=== PATIENT | female | born 1975 | race Caucasian/White ===

== ENCOUNTER 2017-07-09 15:00 | Emergency (ER) | payer MEDICARE ==
[2017-07-09] MEDS ORDERED: IV NORMAL SALINE 1000ML BAG 1,000 ML IV ×2 (15:30)
[2017-07-09] MEDS ORDERED: HYDROmorphone 2 MG/ML VIAL IV ×2 (15:30)
[2017-07-09] MEDS ORDERED: ONDANSETRON PF 4 MG/2 ML VIAL. IV ×4 (15:30)
[2017-07-09] MEDS ORDERED: KETOROLAC 15 MG/ML VIAL. IV ×2 (15:30)
[2017-07-09 15:46] LABS: BILIRUBIN,URINE NEGATIVE (NEG); CLARITY,URINE CLEAR; COLOR,URINE YELLOW; GLUCOSE,URINE NEGATIVE (NEG); NITRITE,URINE NEGATIVE (NEG); PH,URINE 6.5; PROTEIN,URINE NEGATIVE (NEG-TRACE); UROBILINOGEN,URINE 0.2 mg/dL (0.2 mg/dL)
[2017-07-09 16:03] LABS: RBC,URINE 0 /HPF (0-2)
[2017-07-09 16:04] LABS: BACTERIA,URINE FEW /HPF (0-FEW); SQUAMOUS EPITHELIAL CELL,UR MOD /LPF; WBC,URINE 0 /HPF (0-4)
[2017-07-09] MEDS: HYDROmorphone 2 MG/ML VIAL IM ×2 (16:53)
[2017-07-09] MEDS: KETOROLAC 60 MG/2 ML INJ. IM ×2 (16:53)
[2017-07-09] MEDS: ONDANSETRON ODT 4 MG TAB.RAPDIS. PO ×2 (16:53)
[2017-07-09 17:57] LABS: ADD MAN DIFF? NO
[2017-07-09 18:00] LABS: BASO # 0.1 x10^3/uL (0.0-0.2); BASO % 1 % (0-3); EOS # 0.1 x10^3/uL (0.0-0.7); EOS % 2 % (0-3); HEMATOCRIT 36.7 % (36.0-47.0); HEMOGLOBIN 12.5 g/dL (12.0-15.5); LYMPH # 1.6 x10^3/uL (1.0-4.8); LYMPH % 27 % (24-48); MEAN CORPUSCULAR HEMOGLOBIN 33 pg (25-35); MEAN CORPUSCULAR HGB CONC 34 g/dL (31-37); MEAN CORPUSCULAR VOLUME 96 fL (79-100); MONO # 0.4 x10^3/uL (0.0-1.1); MONO % 7 % (0-9); NEUT # 3.7 x10^3uL (1.8-7.7); NEUT % 64 % (31-73); PLATELET COUNT 251 x10^3/uL (140-400); RED BLOOD COUNT 3.84 x10^6/uL (3.50-5.40); RED CELL DISTRIBUTION WIDTH 12.4 % (11.5-14.5); WHITE BLOOD COUNT 5.8 x10^3/uL (4.0-11.0)
[2017-07-09] MEDS: HYDROmorphone 2 MG/ML VIAL IV ×2 (18:00)
[2017-07-09 18:21] LABS: ANION GAP 10 (6-14); BLOOD UREA NITROGEN 20 mg/dL (7-20); BUN/CREATININE RATIO 25 (6-20); CALCIUM 8.9 mg/dL (8.5-10.1); CARBON DIOXIDE 26 mmol/L (21-32); CHLORIDE 107 mmol/L (98-107); CREATININE 0.8 mg/dL (0.6-1.0); GFR 78.3; GLUCOSE 91 mg/dL (70-99); POTASSIUM 3.7 mmol/L (3.5-5.1); SODIUM 143 mmol/L (136-145)
[2017-07-09 18:33] LABS: ALBUMIN 3.6 g/dL (3.4-5.0); ALK PHOS 50 U/L (46-116); ALT (SGPT) 14 U/L (14-59); AST (SGOT) 13 U/L (15-37); TOTAL BILIRUBIN 0.3 mg/dL (0.2-1.0); TOTAL PROTEIN 7.2 g/dL (6.4-8.2)
[2017-07-09] MEDS: traMADol 50 MG TABLET PO ×2 (19:00)
[2017-07-09] MEDS: KETOROLAC 15 MG/ML VIAL. IV ×2 (19:01)
[2017-07-10 13:21] LABS: FSH 9.3 mIU/mL (.)
[2017-07-10 13:21] LABS: ESTRADIOL LEVEL 81.5 pg/mL (.)
== END 2017-07-09 19:20 | disposition home or self-care (01) ==
LOC: ER 15:00
DX: N83.201 Unspecified ovarian cyst, right side (principal); K21.9 Gastro-esophageal reflux disease without esophagitis; G40.909 Epilepsy, unspecified, not intractable, without status epilepticus; Z90.49 Acquired absence of other specified parts of digestive tract; Z90.710 Acquired absence of both cervix and uterus; Z90.721 Acquired absence of ovaries, unilateral; Z88.5 Allergy status to narcotic agent; Z88.8 Allergy status to other drugs, medicaments and biological substances; Z86.73 Personal history of transient ischemic attack (TIA), and cerebral infarction without residual deficits
CPT/HCPCS: 36415; 76830; 76856; 80053; 81001; 82670; 83001; 85025; 96372; 96374; 96375; 99285-25; J1170; J1885; Q0162

== ENCOUNTER → 2018-09-20 | Outpatient (CLI) | payer MEDICARE ==
[2017-07-09 19:20] VITALS: BP 103/68
[~2018-09-20] MED LIST: BUPR150T15 PO; DOCU-150 PO; HYDR200T71 PO; LAMO200T3 PO; MORP30TA83 PO; MYCO250C PO; NITR0.4T22 SL; PANT40GR PO; PARO20TA99 PO; PARO30TA45 PO; POTA99TA10 PO; TEMA15CA6 PO; TOPI50TA38 PO; TRAM-48 PO
--- NOTE | 2018-09-20 17:09 | KCIC ---
MRI Lumbar Spine without contrast History: Left sciatic nerve pain, chronic low back pain, bilateral lower extremity numbness Technique: Multiplanar, multi sequential noncontrast MR imaging was performed of the lumbar spine. Comparison: July 05, 2013 Findings: There is now grade 1 anterior spondylolisthesis L3-4. There has been progression of mild degenerative disc disease at L3-4 and L5-S1, again mild L4-5 degenerative disc disease. There is now posterior annular tear L5-S1. There is no significant marrow edema, trace edema of the superior left L5 endplate likely reactive/degenerative in etiology. Conus terminates at L1-2. Vertebral body stature is maintained. Barely included, there is focus of somewhat heterogeneous signal in the right parasagittal pelvic region. L3-L4: There is mild to moderate buckling of the ligamentum flavum and mild facet degenerative change somewhat greater than previously. There is mild partial uncovering of the posterior aspect of the disc due to spondylolisthesis. Spinal canal and neural foramina are overall adequate. L4-L5: There is again negligible bulge. There is now very small extrusion extending very slightly below the intervertebral disc space in the far right lateral recess estimated about 0.4 cm CC by 0.3 cm AP by 0.4 cm transverse, contacts the descending right L5 nerve root in the right lateral recess without significant displacement. Neural foramina are overall adequate. L5-S1: There is minimal posterior bulge without neural impingement. Spinal canal is adequate. Neural foramina are adequate. There is mild right facet degenerative change. Impression: 1. Compared with the 2013 exam, there has been progression of mild degenerative disc disease L3-4 and L5-S1 and also new very mild grade 1 anterior spondylolisthesis L3-4. There is again mild degenerative disc disease at L4-5. There is now very small extrusion extending below the L4-5 and vertebral disc space in the right lateral recess contacting the descending right L5 nerve root. There is no new significant lumbar spinal stenosis. 2. Barely included, there is some somewhat round focus of signal abnormality with adjacent fluid of the right parasagittal pelvic region may be dermal a complex cyst. Electronically signed by: Pal Castellanos MD (09/20/2018 5:06 PM) [facility]
== END | disposition home or self-care (01) ==
LOC: KCIC MRI 15:04
PROVIDERS: ATTEND Family Medicine
DX: M51.37 Other intervertebral disc degeneration, lumbosacral region (principal); M43.16 Spondylolisthesis, lumbar region; M47.817 Spondylosis without myelopathy or radiculopathy, lumbosacral region; M51.26 Other intervertebral disc displacement, lumbar region
CPT/HCPCS: 72148

== ENCOUNTER 2021-04-07 16:13 | Inpatient (IN) | payer MEDICARE ==
[~2021-04-07] VITALS: Ht 175.3 cm; Wt 68.1 kg
[~2021-04-07 16:13] MED LIST changes: -DOCU-150 PO; +DOCU-158 PO
[2021-04-07] MEDS ORDERED: fentaNYL PF VIAL 100 MCG/2 ML VIAL IVP ONE ×3 (16:45→18:30)
[2021-04-07] MEDS ORDERED: KETOROLAC 30 MG/ML VIAL. IVP ONE (16:45)
[2021-04-07] MEDS ORDERED: IV NORMAL SALINE 1000ML BAG 1,000 ML IV SCH (16:45)
[2021-04-07] MEDS ORDERED: ONDANSETRON PF 4 MG/2 ML VIAL. IVP ONE ×2 (16:45→19:15)
--- NOTE | 2021-04-07 17:11 | PHYS DOC ---
Past Medical History Past Medical History: GERD, Seizure, Other Additional Past Medical Histor: Lupus, "clotting disorder", esophageal spasms, (MIKEY WALTER APRN) Past Surgical History: Cholecystectomy, Hysterectomy, Tonsillectomy, Other Additional Past Surgical Histo: Left shoulder (MIKEY WALTER CONCERT PROMOTER) Smoking Status: Former Smoker Alcohol Use: None Drug Use: None (MIKEY WALTER APRN) General Adult EDM: Chief Complaint: ABDOMINAL PAIN HPI: HPI: Patient is a 45 year old female who presents with last night began with an onset of very sharp right lower quadrant pain that is progressively gotten worse today with vomiting. She did take some ibuprofen prior to going to her primary care who sent her to the hospital to be evaluated. She denies urinary symptoms, chest pain, shortness of air, fever, diarrhea, headache, dizzy, syncope, numbness or tingling, vaginal discharge. Patient has a history of depression, GERD, unstable angina, esophageal spasm, factor V, lupus, hysterectomy, former smoker, tonsillectomy, seizure, cholecystectomy. She is rating her pain a 10 out of 10. (MIKEY WALTER CONCERT PROMOTER) Review of Systems: Review of Systems: Constitutional: Denies fever or chills. [] Eyes: Denies change in visual acuity. [] HENT: Denies nasal congestion or sore throat. [] Respiratory: Denies cough or shortness of breath. [] Cardiovascular: Denies chest pain or edema. [] GI: + abdominal pain, +nausea,+ vomiting, denies bloody stools or diarrhea. [] : Denies dysuria. [] Musculoskeletal: + right back pain or denies joint pain. [] Integument: Denies rash. [] Neurologic: Denies headache, focal weakness or sensory changes. [] Endocrine: Denies polyuria or polydipsia. [] Lymphatic: Denies swollen glands. [] Psychiatric: Denies depression or anxiety. [] (MIKEY WALTER APRN) Heart Score: C/O Chest Pain: No (MIKEY WALTER APRN) Current Medications: Current Medications Medications (Trade) Dose Ordered Sig/Blair Start Time Stop Time Status Last Admin Dose Admin Fentanyl Citrate (Fentanyl 2ml Vial) 50 mcg 1X ONCE 04/07/21 16:45 04/07/21 16:46 DC Ketorolac Tromethamine (Toradol 30mg Vial) 30 mg 1X ONCE 04/07/21 16:45 04/07/21 16:46 DC Ondansetron HCl (Zofran) 4 mg 1X ONCE 04/07/21 16:45 04/07/21 16:46 DC 04/07/21 16:58 4 MG Sodium Chloride 1,000 ml @ 1,000 mls/hr Q1H 04/07/21 16:45 04/07/21 17:44 (MIKEY WALTER APRN) Allergies: Allergies: Allergies Coded Allergies Type Severity Reaction Last Updated Verified prochlorperazine maleate Allergy Severe Anxiety 04/07/21 Yes codeine Allergy Unknown 04/07/21 Yes hydrocodone bitartrate Allergy Unknown 04/07/21 Yes morphine Allergy Unknown hives 04/07/21 Yes oxycodone HCl Allergy Unknown 04/07/21 Yes prochlorperazine edisylate Allergy Unknown 04/07/21 Yes propoxyphene napsylate Allergy Unknown 04/19/14 Yes (MIKEY WALTER APRN) Physical Exam: PE: Constitutional: Well developed, well nourished, no acute distress, non-toxic a ppearance. [] HENT: Normocephalic, atraumatic, bilateral external ears normal, oropharynx moist, no oral exudates, nose normal. [] Eyes: PERRLA, EOMI, conjunctiva normal, no discharge. [] Neck: Normal range of motion, no tenderness, supple, no stridor. [] Cardiovascular:Heart rate regular rhythm, no murmur [] Lungs & Thorax: Bilateral breath sounds clear to auscultation [] Abdomen: Bowel sounds normal, soft, RLQ tenderness, no masses, no pulsatile masses. [] Skin: Warm, dry, no erythema, no rash. [] Back: No tenderness, Right CVA tenderness. [] Extremities: No tenderness, no cyanosis, no clubbing, ROM intact, no edema. [] Neurologic: Alert and oriented X 3, normal motor function, normal sensory function, no focal deficits noted. [] Psychologic: Affect normal, judgement normal, mood normal. [] (MIKEY WALTER APRN) EKG: EKG: [] (MIKEY WALTER APRN) Radiology/Procedures: Radiology/Procedures: [] Impression: [facility] [address] [place] [address] IMAGING REPORT Signed PATIENT: JOSE DUFF DACCOUNT: [id number] : 1975 LOCATION: ER AGE: 45 SEX: F EXAM STATUS: PRE ER ORD. PHYSICIAN: MIKEY WALTER APRN REASON: RLQ abdominal pain with vomiting PROCEDURE: CT ABD PELV W/ IV CONTRST ONLY Exam: CT of abdomen and pelvis with contrast INDICATION: Right lower quadrant abdominal pain with vomiting TECHNIQUE: Sequential axial images through the abdomen and pelvis obtained following the administration of 75 mL of Isovue-370 IV contrast. Sagittal and coronal reformatted images were reconstructed from the axial data and reviewed. Exposure: One or more of the following in the visualized dose reduction techniques were utilized for this examination: 1. Automated exposure control 2. Adjustment of the MA and/or KV according to patient size 3. Use of iterative of reconstructive technique Comparisons: None FINDINGS: Heart size is normal. No pericardial effusion. Visualized lung bases are clear. No pleural effusion. Mild intrahepatic biliary ductal dilatation. Spleen, pancreas and adrenals are unremarkable. Gallbladder surgically absent. No perinephric inflammation or hydronephrosis. No renal or ureteral calculi are identified. Bladder is partially distended and not well evaluated. Uterus is absent. 4.5 cm cystic lesion at the right adnexa. Large and small bowel are unremarkable. Appendix is not identified. No free intra-abdominal air or fluid. No obstruction. Abdominal aorta has normal course and caliber. Abdominal vasculature is patent. No enlarged intra-abdominal lymph nodes are identified. No suspicious osseous lesions or acute fractures. IMPRESSION: 1. Cystic lesion at the right adnexa measuring 4.5 cm favored represent cystic lesion at the right ovary, incompletely characterized on CT. 2. Appendix is not identified. No inflammatory changes in the right lower quadrant to suggest acute appendicitis. Electronically signed by: Mckayla Beverly MD (04/07/2021 6:09 PM) [facility] DICTATED and SIGNED BY: MCKAYLA BEVERLY MD DATE: 04/07/21 [id number] (MIKEY WALTER APRN) Course & Med Decision Making: Course & Med Decision Making Pertinent Labs and Imaging studies reviewed. (See chart for details) See HPI. Alert and oriented x4. Ambulatory steady gait. Right lower quadrant very tender upon exam. Guarding. Abdomen is soft. Right CVA tenderness. Speaks in full clear sentences. Very anxious and rolling around in the bed. Total of 100mcg Fentanyl, one bolus normal saline, Zofran given. 2024: CT abdomen pelvis shows a right adnexal cyst. Blood work is unremarkable. Urinalysis shows no infection. Patient has received a total of 150mcg of fentanyl. Spoke to the patient concerning possible admission due to her intractable abdominal pain and pain medication allergies. Patient states that she does not want pain medicine to go home on. We then talked about how the pain is making her vomit and she may start to get dehydrated. Ultrasound is pending at this time. Patient reported off to Dr. Elam. [] (MIKEY WALTER APRN) Course & Med Decision Making Concern for intractable abdominal pain w/associated nausea and vomiting. Upon reevaluation patient with persistent symptoms. Will admit to medicine for further medical management. Patient stable time of admission and agrees with this plan. I have spoken with the patient and/or caregivers-pts' at bedside, (patient consents to his/her/their knowledge and involvement in pts' medical care). I have explained the patient's condition, diagnosis and treatment plan based on the information available to me at this time. I have answered the patient's and/or caregivers questions and answered any concerns. The patient and/or caregivers have as good an understanding of the patient's diagnosis, condition and treatment plan as can be expected at this point. The patient has been stabilized within the capability of the emergency department. The patient will be transported for further care and management or will be moved to an observation or inpatient service. I have communicated with the staff or medical practitioner taking over this patient's care. (LISSETH ELAM DO) Course & Med Decision Making EXAMINATION: US PELVIS COMPLETE INDICATION: 45 years, Female, right adnexal cyst seen on CT exam. Further evaluation.. COMPARISON: Same day CT abdomen and pelvis. Ultrasound dated 07/09/2017 TECHNIQUE: Transabdominal ultrasound of the pelvis was performed with grayscale, spectral, and color doppler imaging. FINDINGS: Hysterectomy and left oophorectomy. RIGHT OVARY/ADNEXA: Measures: 4.9 x 4.1 x 3.8 cm. Right Ovarian Morphology: There are 2 subjacent simple appearing cysts, the largest measures 3.5 x 3.2 x 2.9 cm. The smaller cyst measures 2.2 x 1.8 x 1.5 cm. Right Ovarian Color And Spectral Doppler Flow: Normal. OTHER: Fluid/Cul-De-Sac: None. Normal or abnormal appendix is not visualized. IMPRESSION: 1. Two simple right ovarian cysts measuring up to 3.5 cm. Incidental simple adnexal cyst <5cm, almost certainly benign. No dedicated follow-up required. Recommendation per SRU consensus guidelines for follow-up and management of asymptomatic ovarian and adnexal cysts (Radiology 2010; 256:943-954). 2. Normal or abnormal appendix is not visualized. Electronically signed by: Isabelle Mckeon MD (04/07/2021 8:24 PM) I have participated in the care of this patient and I have reviewed and agree with all pertinent clinical information above including history, exam, and recommendations. Anali Hawkins DO (ANALI HAWKINS DO) Dominick Disclaimer: Dominick Disclaimer: This electronic medical record was generated, in whole or in part, using a voice recognition dictation system. (MIKEY WALTER APRN) Departure Departure Impression: Primary Impression: Intractable abdominal pain Additional Impression: Nausea & vomiting Disposition: ADMITTED INPATIENT Admitting Physician: JOSEPH (Dr. Sawant) (LISSETH ELAM DO) Condition: STABLE Referrals: MIRTHA PHAN MD (PCP) MIKEY WALTER APRN Apr 07, 2021 17:10 LISSETH ELAM DO Apr 08, 2021 02:45 ANALI HAWKINS DO Apr 08, 2021 07:34
[2021-04-07 17:13] LABS: BASO # 0.1 x10^3/uL (0.0-0.2); BASO % 1 % (0-3); EOS # 0.1 x10^3/uL (0.0-0.7); EOS % 1 % (0-3); HEMATOCRIT 38.8 % (36.0-47.0); HEMOGLOBIN 13.6 g/dL (12.0-15.5); LYMPH # 1.4 x10^3/uL (1.0-4.8); LYMPH % 19 % (24-48); MEAN CORPUSCULAR HEMOGLOBIN 33 pg (25-35); MEAN CORPUSCULAR HGB CONC 35 g/dL (31-37); MEAN CORPUSCULAR VOLUME 95 fL (79-100); MONO # 0.7 x10^3/uL (0.0-1.1); MONO % 10 % (0-9); NEUT # 5.1 x10^3/uL (1.8-7.7); NEUT % 70 % (31-73); PLATELET COUNT 250 x10^3/uL (140-400); RED BLOOD COUNT 4.09 x10^6/uL (3.50-5.40); RED CELL DISTRIBUTION WIDTH 12.5 % (11.5-14.5); WHITE BLOOD COUNT 7.3 x10^3/uL (4.0-11.0)
[2021-04-07 17:23] LABS: CREATININE 0.8 mg/dL (0.6-1.0); GFR 77.2; POTASSIUM 3.4 mmol/L (3.5-5.1)
[2021-04-07 17:28] LABS: ALBUMIN 4.4 g/dL (3.4-5.0); ALBUMIN/GLOBULIN RATIO 1.4 (1.0-1.7); TOTAL BILIRUBIN 0.7 mg/dL (0.2-1.0); TOTAL PROTEIN 7.6 g/dL (6.4-8.2)
[2021-04-07] MEDS ORDERED: IOHEXOL 300 MG/ML 100ML VIAL. IV ONE (17:45)
[2021-04-07] MEDS ORDERED: CONTRAST GIVEN. MC PRN (17:45)
--- NOTE | 2021-04-07 18:11 | RAD ---
Exam: CT of abdomen and pelvis with contrast INDICATION: Right lower quadrant abdominal pain with vomiting TECHNIQUE: Sequential axial images through the abdomen and pelvis obtained following the administrati on of 75 mL of Isovue-370 IV contrast. Sagittal and coronal reformatted images were reconstructed fro m the axial data and reviewed. Exposure: One or more of the following in the visualized dose reduction techniques were utilized for this examination: 1. Automated exposure control 2. Adjustment of the MA and/or KV according to patient size 3. Use of iterative of reconstructive technique Comparisons: None FINDINGS: Heart size is normal. No pericardial effusion. Visualized lung bases are clear. No pleural effusion. Mild intrahepatic biliary ductal dilatation. Spleen, pancreas and adrenals are unremarkable. Gallblad syd surgically absent. No perinephric inflammation or hydronephrosis. No renal or ureteral calculi are identified. Bladder is partially distended and not well evaluated. Uterus is absent. 4.5 cm cystic lesion at the right adnexa. Large and small bowel are unremarkable. Appendix is not identified. No free intra-abdominal air or fl uid. No obstruction. Abdominal aorta has normal course and caliber. Abdominal vasculature is patent. No enlarged intra-abdominal lymph nodes are identified. No suspicious osseous lesions or acute fractures. IMPRESSION: 1. Cystic lesion at the right adnexa measuring 4.5 cm favored represent cystic lesion at the right o vary, incompletely characterized on CT. 2. Appendix is not identified. No inflammatory changes in the right lower quadrant to suggest acute appendicitis. Electronically signed by: Mckayla Pineda MD (04/07/2021 6:09 PM) [facility]
[2021-04-07 18:35] LABS: BILIRUBIN,URINE NEGATIVE (NEG); CLARITY,URINE CLEAR; COLOR,URINE YELLOW; NITRITE,URINE NEGATIVE (NEG); PROTEIN,URINE NEGATIVE (NEG-TRACE); UROBILINOGEN,URINE 0.2 mg/dL (0.2 mg/dL)
[2021-04-07 18:39] LABS: BACTERIA,URINE FEW /HPF (0-FEW)
[2021-04-07 18:40] LABS: RBC,URINE 0 /HPF (0-2); WBC,URINE 0 /HPF (0-4)
[2021-04-07] MEDS ORDERED: IV NORMAL SALINE 1000ML BAG 1,000 ML IV ONE (19:00)
[2021-04-07 19:50] VITALS: BP 98/52
--- NOTE | 2021-04-07 20:26 | RAD ---
EXAMINATION: US PELVIS COMPLETE INDICATION: 45 years, Female, right adnexal cyst seen on CT exam. Further evaluation.. COMPARISON: Same day CT abdomen and pelvis. Ultrasound dated 07/09/2017 TECHNIQUE: Transabdominal ultrasound of the pelvis was performed with grayscale, spectral, and color doppler imaging. FINDINGS: Hysterectomy and left oophorectomy. RIGHT OVARY/ADNEXA: Measures: 4.9 x 4.1 x 3.8 cm. Right Ovarian Morphology: There are 2 subjacent simple appearing cysts, the largest measures 3.5 x 3. 2 x 2.9 cm. The smaller cyst measures 2.2 x 1.8 x 1.5 cm. Right Ovarian Color And Spectral Doppler Flow: Normal. OTHER: Fluid/Cul-De-Sac: None. Normal or abnormal appendix is not visualized. IMPRESSION: 1. Two simple right ovarian cysts measuring up to 3.5 cm. Incidental simple adnexal cyst <5cm, almost certainly benign. No dedicated follow-up required. Recommendation per SRU consensus guidelines for follow-up and management of asymptomatic ovarian and adnexal cysts (Radiology 2010; 256:943-954). 2. Normal or abnormal appendix is not visualized. Electronically signed by: Isabelle Mckeon MD (04/07/2021 8:24 PM) [facility]ARA
[2021-04-07] MEDS ORDERED: LIDO:MAALOX 1:1 20 ML SINGLE DOSE. SWSW ONE (22:00)
[2021-04-07] MEDS ORDERED: HYDROmorphone 2 MG/ML VIAL IVP ONE (22:00)
[2021-04-07] MEDS ORDERED: FAMOTIDINE 20 MG/2 ML VIAL IVP ONE (22:00)
[2021-04-07] MEDS ORDERED: METOCLOPRAMIDE HCL 10 MG/2 ML VIAL. IVP ONE (22:00)
[2021-04-07 23:30] VITALS: BP 98/52
[2021-04-08] VITALS (7 sets, daily range): BP systolic 98–158; BP diastolic 51–84
[2021-04-08] MEDS ORDERED: AMLO2.5T5 PO (00:25)
[2021-04-08] MEDS ORDERED: MULT-445 PO (00:26)
[2021-04-08] MEDS: IV NORMAL SALINE 1000ML BAG 1,000 ML IV SCH ×3 (00:53→18:00)
[2021-04-08] MEDS: HYDROmorphone 2 MG/ML VIAL IVP PRN ×5 (01:55→22:17)
[2021-04-08] MEDS: ONDANSETRON PF 4 MG/2 ML VIAL. IVP PRN ×3 (06:21→22:16)
[2021-04-08] MEDS ORDERED: FLU VACC QUAD 21-22 (6MOS+) PF 0.5 ML SYRINGE. VAX IM ONE (09:00)
[2021-04-08] MEDS ORDERED: PROCHLORPERAZINE 10 MG/2 ML VIAL. IV PRN (10:00)
--- NOTE | 2021-04-08 10:41 | NUR ---
SW following. Discussed with RN, pt from home with , room air, NPO, ad berta. RN advised no SW needs. Pt newly admitted, awaiting plan of care. SW will continue to follow.
[2021-04-08] MEDS: PROMETHAZINE 25 MG SUPP.RECT. PR PRN ×2 (10:51→18:25)
--- NOTE | 2021-04-08 13:10 | HP ---
DATE OF SERVICE: 04/08/2021 ADMIT DATE: 04/07/2021 CHIEF COMPLAINT: Abdominal pain, nausea, vomiting. HISTORY OF PRESENT ILLNESS: The patient is a pleasant, middle-aged female who presented to the ER at [facility] with nausea, vomiting, abdominal pain, rated it 9/10. She has associated vomiting, it has been occurring for a couple of days. She took some [id number] medicines that did not seem to help. The imaging at the ER at [facility] showed some ovarian cyst, but the patient was extremely symptomatic. We accepted the patient as a transfer. She is now being examined in room 526 where she is still having a lot of symptoms and requesting a p.r.n. Zofran, Phenergan suppositories and pain meds. PAST MEDICAL HISTORY: GERD, seizures, lupus, esophageal spasm, clotting disorder, cholecystectomy, hysterectomy, tonsillectomy, left shoulder surgery, previous tobacco abuse. ALLERGIES: MULTIPLE INCLUDING CODEINE, HYDROCODONE, MORPHINE, OXYCODONE, PROCHLORPERAZINE EDILYSATE, PROPOXYPHENE NAPSYLATE. FAMILY HISTORY: Diabetes. SOCIAL HISTORY: She does not drink, smoke or take drugs. She quit smoking. 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 She is . MEDICATIONS: Reviewed, please refer to the MRAD. REVIEW OF SYSTEMS: GENERAL: No history of weight change, weakness or fevers. SKIN: No bruising, hair changes or rashes. EYES: No blurred, double or loss of vision. NOSE AND THROAT: No history of nosebleeds, hoarseness or sore throat. HEART: No history of palpitations, chest pain or shortness of breath on exertion. LUNGS: Denies cough, hemoptysis, wheezing or shortness of breath. GASTROINTESTINAL: She complains of abdominal pain, nausea, vomiting. GENITOURINARY: No history of frequency, urgency, hesitancy or nocturia. NEUROLOGIC: Denies history of numbness, tingling, tremor or weakness. PSYCHIATRIC: No history of panic, anxiety or depression. ENDOCRINE: No history of heat or cold intolerance, polyuria or polydipsia. EXTREMITIES: Denies muscle weakness, joint pain, pain on walking or stiffness. PHYSICAL EXAMINATION: VITALS: Within normal limits and are stable. GENERAL: No apparent distress. Alert and oriented. HEENT: Normal cephalic atraumatic, external auditory canals are patent EYES: Extraocular muscles are intact, pupils are equally round and reactive to light and accommodation MUSCULOSKELETAL: Well developed, well nourished, good range of motion ENDOCRINE: No thyromegaly was palpated LYMPHATICS: No cervical chain or axillary nodes were noted HEMATOPOIETIC: No bruising NECK: Supple, no JVD, no thyromegaly was noted. LUNGS: Clear to auscultation in all lung ritchie without rhonchi or wheezing. HEART: RRR, S1, S2 present. Peripheral pulses intact, no obvious murmurs were noted. ABDOMEN: She has decreased bowel sounds with tenderness to palpation. EXTREMITIES: Without any cyanosis, clubbing, or edema. Pedal pulses intact, Homans sign is negative. NEUROLOGIC: Normal speech, normal tone. A and O x3, moves all extremities, no obvious focal deficits. PSYCHIATRIC: Normal affect, normal mood. Stable. SKIN: No ulcerations or rashes, good skin turgor, no jaundice. VASCULAR: Good capillary refill, neurovascular bundle appears to be intact. LABORATORY DATA: White count 7, hemoglobin 13.6, platelets 250. Electrolytes are normal other than potassium 3.4. Urinalysis negative. DIAGNOSTIC DATA: CT of the abdomen showed cystic lesions at the right adnexa 4.5 cm with a cyst in the right ovary. ASSESSMENT AND PLAN: Abdominal pain, nausea, vomiting, intractable pain, ovarian cyst. The patient has been admitted. We are consulting GI. P.r.n. Zofran, p.r.n. Phenergan, home meds. Deep venous thrombosis prophylaxis. Full code. IV hydration, p.r.n. pain meds. We will consult [employer] ESTATE INVESTMENT ANALYST for a second opinion as well. Total time 32 minutes. NOVA/EAMON/CESAR DR: NOVA/jesus TID: [id number]
--- NOTE | 2021-04-08 13:11 | PDOC2 ---
GI CONSULT Date of Service: DATE: 04/08/21 TIME: 13:11 Reason For Consult: intractable n/v HPI: HPI: 45 y/o female admitted through ER yesterday. 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 Decreased appetite w/ weight loss of 70 pounds during this time. Intermittent n/v also. Attributed all to stress. This week, symptoms worsened w/ recurrence of n/v and development of pain around umbilicus radiating toward back. Also feels reflux when she lays down. Pain is worse than past GB attack, not like esophageal spasms, and not last past ovarian cyst pain. H/o GERD on pantoprazole QHS (works better for her before bed, also had a hard time remembering to take in the mornings). Was recently out of pantoprazole and while waiting to get in to see her doctor for Rx, took omeprazole OTC - now back on pantoprazole which works better. says sometimes she forgot to take take pantoprazole. She also takes Pepcid or chewable antacids PRN for breakthrough symptoms. H/o esophageal spasms w/ past nifedipine use - not an issue for quite some time. No hematemesis, hematochezia, or melena. No diarrhea or constipation. Past EGDs w/ Dr. Lloyd, last about 5 years ago - says always with "high amount of GERD." No previous colonoscopy. S/p cholecystectomy ("duct infection"). Denies liver, pancreas, or PUD history. Aleve 2-4 tablets daily for joint pains. H/o lupus w/ past methotrexate and prednisone use - has not taken either for a bout a year and a half. Follows w/ rheumatology and says most recent labs were the best they've ever been. PMH: PMH: CVA, seizure, DVT, lupus, factor V?, anxiety/depression cholecystectomy, tonsillectomy, partial hysterectomy FH: Family History: No pertinent hx (no GI cancers) Social History: Smoke: Quit ALCOHOL: occassional Drugs: Other (past use of THC for pain and appetite - none for many months) ROS: GEN: Denies fevers, chills, sweats HEENT: Denies blurred vision, sore throat CV: Denies chest pain RESP: Denies shortness of air, cough GI: Per HPI : Denies hematuria, dysuria ENDO: +weight loss NEURO: Denies confusion, dizziness MSK: +chronic joint pain SKIN: Denies jaundice, pruritus Vitals: Vitals: Vital Signs Date Time Temp Pulse Resp B/P (MAP) Pulse Ox O2 Delivery O2 Flow Rate FiO2 04/08/21 11:54 98.3 57 16 100/51 (67) 100 98.3 04/08/21 08:06 Room Air Labs: Labs: Laboratory Tests Test 04/07/21 13:55 04/07/21 18:25 White Blood Count 7.3 x10^3/uL (4.0-11.0) Red Blood Count 4.09 x10^6/uL (3.50-5.40) Hemoglobin 13.6 g/dL (12.0-15.5) Hematocrit 38.8 % (36.0-47.0) Mean Corpuscular Volume 95 fL (79-100) Mean Corpuscular Hemoglobin 33 pg (25-35) Mean Corpuscular Hemoglobin Concent 35 g/dL (31-37) Red Cell Distribution Width 12.5 % (11.5-14.5) Platelet Count 250 x10^3/uL (140-400) Neutrophils (%) (Auto) 70 % (31-73) Lymphocytes (%) (Auto) 19 % (24-48) Monocytes (%) (Auto) 10 % (0-9) Eosinophils (%) (Auto) 1 % (0-3) Basophils (%) (Auto) 1 % (0-3) Neutrophils # (Auto) 5.1 x10^3/uL (1.8-7.7) Lymphocytes # (Auto) 1.4 x10^3/uL (1.0-4.8) Monocytes # (Auto) 0.7 x10^3/uL (0.0-1.1) Eosinophils # (Auto) 0.1 x10^3/uL (0.0-0.7) Basophils # (Auto) 0.1 x10^3/uL (0.0-0.2) Sodium Level 140 mmol/L (136-145) Potassium Level 3.4 mmol/L (3.5-5.1) Chloride Level 101 mmol/L (98-107) Carbon Dioxide Level 27 mmol/L (21-32) Anion Gap 12 (6-14) Blood Urea Nitrogen 10 mg/dL (7-20) Creatinine 0.8 mg/dL (0.6-1.0) Estimated GFR (Cockcroft-Gault) 77.2 BUN/Creatinine Ratio 13 (6-20) Glucose Level 82 mg/dL (70-99) Calcium Level 9.0 mg/dL (8.5-10.1) Total Bilirubin 0.7 mg/dL (0.2-1.0) Aspartate Amino Transf (AST/SGOT) 22 U/L (15-37) Alanine Aminotransferase (ALT/SGPT) 27 U/L (14-59) Alkaline Phosphatase 48 U/L (46-116) Total Protein 7.6 g/dL (6.4-8.2) Albumin 4.4 g/dL (3.4-5.0) Albumin/Globulin Ratio 1.4 (1.0-1.7) Lipase 111 U/L (73-393) Urine Collection Type Unknown Urine Color Yellow Urine Clarity Clear Urine pH 8.0 (<5.0-8.0) Urine Specific [place] 1.010 (1.000-1.030) Urine Protein Negative mg/dL (NEG-TRACE) Urine Glucose (UA) Negative mg/dL (NEG) Urine Ketones (Stick) 40 mg/dL (NEG) Urine Blood Negative (NEG) Urine Nitrite Negative (NEG) Urine Bilirubin Negative (NEG) Urine Urobilinogen Dipstick 0.2 mg/dL (0.2 mg/dL) Urine Leukocyte Esterase Negative (NEG) Urine RBC 0 /HPF (0-2) Urine WBC 0 /HPF (0-4) Urine Squamous Epithelial Cells Few /LPF Urine Bacteria Few /HPF (0-FEW) Allergies: Coded Allergies: prochlorperazine maleate (Verified Allergy, Severe, Anxiety, 04/07/21) propoxyphene napsylate (Verified Allergy, Severe, 04/07/21) codeine (Verified Allergy, Intermediate, 04/07/21) hydrocodone bitartrate (Verified Allergy, Intermediate, 04/07/21) TOLERATES HYDROMORPHONE morphine (Verified Allergy, Intermediate, hives, 04/07/21) oxycodone HCl (Verified Allergy, Intermediate, 04/07/21) prochlorperazine edisylate (Verified Allergy, Intermediate, 04/07/21) Medications: Current Medications Medications (Trade) Dose Ordered Sig/Blair Route PRN Reason Start Time Stop Time Status Last Admin Dose Admin Sodium Chloride 1,000 ml @ 1,000 mls/hr Q1H IV 04/07/21 16:45 04/07/21 17:44 DC 04/07/21 16:45 Fentanyl Citrate (Fentanyl 2ml Vial) 50 mcg 1X ONCE IVP 04/07/21 16:45 04/07/21 16:46 DC 04/07/21 16:45 Ondansetron HCl (Zofran) 4 mg 1X ONCE IVP 04/07/21 16:45 04/07/21 16:46 DC 04/07/21 16:58 Fentanyl Citrate (Fentanyl 2ml Vial) 50 mcg 1X ONCE IVP 04/07/21 17:30 04/07/21 17:31 DC 04/07/21 17:35 Iohexol (Omnipaque 300 Mg/ml) 75 ml 1X ONCE IV 04/07/21 17:45 04/07/21 17:46 DC 04/07/21 17:51 Fentanyl Citrate (Fentanyl 2ml Vial) 50 mcg 1X ONCE IVP 04/07/21 18:30 04/07/21 18:31 DC 04/07/21 18:44 Sodium Chloride 1,000 ml @ 1,000 mls/hr 1X ONCE IV 04/07/21 19:00 04/07/21 19:59 DC 04/07/21 19:18 Ondansetron HCl (Zofran) 4 mg 1X ONCE IVP 04/07/21 19:15 04/07/21 19:16 DC 04/07/21 19:16 Hydromorphone HCl (Dilaudid) 1 mg 1X ONCE IVP 04/07/21 22:00 04/07/21 22:01 DC 04/07/21 21:50 Metoclopramide HCl (Reglan Vial) 10 mg 1X ONCE IVP 04/07/21 22:00 04/07/21 22:01 WV 04/07/21 21:45 Famotidine (Pepcid Vial) 20 mg 1X ONCE IVP 04/07/21 22:00 04/07/21 22:01 DC 04/07/21 21:47 Multi-Ingredient Mouthwash/Gargle (Gi Cocktail) 20 ml 1X ONCE SWSW 04/07/21 22:00 04/07/21 22:01 DC 04/07/21 21:51 Sodium Chloride 1,000 ml @ 100 mls/hr Q10H IV 04/07/21 22:00 04/08/21 21:59 04/08/21 10:52 Hydromorphone HCl (Dilaudid) 1 mg PRN Q4HRS PRN IVP SEVERE PAIN 7-10 04/08/21 01:30 04/08/21 11:57 Ondansetron HCl (Zofran) 4 mg PRN Q4HRS PRN IVP NAUSEA/VOMITING 1ST CHOICE 04/08/21 01:30 04/08/21 06:21 Promethazine HCl (Phenergan Supp) 25 mg PRN Q6HRS PRN OR NAUSEA/VOMITING 04/08/21 10:45 04/08/21 10:51 Imaging: Imaging: CT A/P FINDINGS: Heart size is normal. No pericardial effusion. Visualized lung bases are clear. No pleural effusion. Mild intrahepatic biliary ductal dilatation. Spleen, pancreas and adrenals are unremarkable. Gallbladder surgically absent. No perinephric inflammation or hydronephrosis. No renal or ureteral calculi are identified. Bladder is partially distended and not well evaluated. Uterus is absent. 4.5 cm cystic lesion at the right adnexa. Large and small bowel are unremarkable. Appendix is not identified. No free intra-abdominal air or fluid. No obstruction. Abdominal aorta has normal course and caliber. Abdominal vasculature is patent. No enlarged intra-abdominal lymph nodes are identified. No suspicious osseous lesions or acute fractures. IMPRESSION: 1. Cystic lesion at the right adnexa measuring 4.5 cm favored represent cystic lesion at the right ovary, incompletely characterized on CT. 2. Appendix is not identified. No inflammatory changes in the right lower quadrant to suggest acute appendicitis. Pelv US IMPRESSION: 1. Two simple right ovarian cysts measuring up to 3.5 cm. Incidental simple adnexal cyst <5cm, almost certainly benign. No dedicated follow-up required. Recommendation per SRU consensus guidelines for follow-up and management of asymptomatic ovarian and adnexal cysts (Radiology 2010; 256:943-954). 2. Normal or abnormal appendix is not visualized. PE: GEN: uncomfortable HEENT: Atraumatic, PERRL LUNGS: CTAB HEART: RRR ABD: quiet BS, soft, non-distended, TTP umbilical region EXTREMITY: No edema SKIN: No rashes, no jaundice NEURO/PSYCH: A & O 3 A/P: A/P: N/v, abd pain with chronic anorexia and weight loss H/o GERD and esophageal spasms CRC screen - average risk/none S/p cholecystectomy H/o lupus, chronic joint pain on NSAIDs Right ovarian cysts - ASSISTANT CONSTRUCTION SUPERINTENDENT to see -- Labs and imaging unrevealing for obvious GI problem - does have h/o GERD, perhaps not always perfectly compliant w/ PPI and taking NSAIDs regularly. Start IV PPI. Will review all w/ Dr. Ying. DARIUS FELIX Apr 08, 2021 13:11
--- NOTE | 2021-04-08 13:17 | PDOC2 ---
CONSULT Date of Consult Date of Consult DATE: 04/08/21 TIME: 13:16 Reason for Consult Reason for Consult: RLQ pain, right ovarian cysts History of Present Illness Reason for Visit: The pt is a 45y who presented to the ER with RLQ pain. The pt states that over that few days she has N/V off and on. Yesterday after eating was the first time she had pain. She had never had pain like this before. The pain became progressively worse so she presented to the PCP. They sent her to the ER due to her RLQ pain and h/o cysts. In the ER she had labs drawn (CBC, CMP, UA) which returned nml. She also had a CT performed revealing the followin. Cystic lesion at the right adnexa measuring 4.5 cm favored represent cystic lesion at the right ovary, incompletely characterized on CT. 2. Appendix is not identified. No inflammatory changes in the right lower quadrant to suggest acute appendicitis. An u/s performed revealed the followin. Two simple right ovarian cysts measuring up to 3.5 cm. Incidental simple adnexal cyst <5cm, almost certainly benign. No dedicated follow-up required. Recommendation per SRU consensus guidelines for follow-up and management of asymptomatic ovarian and adnexal cysts (Radiology 2010; 256:943-954). 2. Normal or abnormal appendix is not visualized. The pt had a hysterectomy 07/23/13. Since was unclear for the OP, the pt was asked if the planned procedure was a hysterectomy. This question made her angry, and she responded of course this was the planned procedure. From the way the OP report was written it was unclear if was a dx L/S that turned into a hysterectomy or LAVH/LSO from the start. The pt was asked why she had the hysterectomy. This also made her mad. She tells me b/c the doctor recommended it. She wonders why I would be asking the question. Explained to make sure the indication in the chart match what she felt the indications were. She feels that this is insult to her. She then states it was so long ago she would not remember. She states she feels that she is not giving me the answers Im looking for. I inform her I am just asking open ended questions. The pt was informed that the indications for the LAVH was chronic pelvic pain, endometriosis and a left ovarian cyst. She then states that she did not mean to imply that she had the hysterectomy simply because the doctor recommended it, but she had multiple imaging prior and they removed it because a cyst and she was told by the doctor that one of her ovaries was attached to her bowel and that may be the reason of her pain. The pt was then asked about her medical hx. She was asked what meds she was currently on and she states they are in the chart. Then she states that she does not like my questions and that she felt that I had an attitude, then asked that I leave. 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) H/o IUD in the past Menarche at 12yo / regular cycles SH: former tob, no EtOH FH: noncontributory Past Medical History Cardiovascular: No pertinent hx Pulmonary: No pertinent hx CENTRAL NERVOUS SYSTEM: CVA, Seizure GI: Constipation, GERD Heme/Onc: Other Hepatobiliary: No pertinent hx Psych: Anxiety Musculoskeletal: low back pain Rheumatologic: Other Infectious disease: No pertinent hx Renal/: No pertinent hx, Urinary Incontinence Endocrine: No pertinent hx Past Surgical History Past Surgical History: Cholecystectomy, Tonsillectomy, Hysterectomy Family History Family History: Coronary Artery Disease Social History ALCOHOL: none Drugs: None Lives: with Family Domestic Violence: Neg Current Problem List Problem List Problems Medical Problems: (1) Intractable abdominal pain Status: Acute (2) Nausea & vomiting Status: Acute Current Medications Current Medications Current Medications Sodium Chloride 1,000 ml @ 1,000 mls/hr Q1H IV Last administered on 04/07/21at 16:45; Start 04/07/21 at 16:45; Stop 04/07/21 at 17:44; Status DC Fentanyl Citrate (Fentanyl 2ml Vial) 50 mcg 1X ONCE IVP Last administered on 04/07/21at 16:45; Start 04/07/21 at 16:45; Stop 04/07/21 at 16:46; Status DC Ondansetron HCl (Zofran) 4 mg 1X ONCE IVP Last administered on 04/07/21at 16:58; Start 04/07/21 at 16:45; Stop 04/07/21 at 16:46; Status DC Ketorolac Tromethamine (Toradol 30mg Vial) 30 mg 1X ONCE IVP ; Start 04/07/21 at 16:45; Stop 04/07/21 at 16:46; Status DC Fentanyl Citrate (Fentanyl 2ml Vial) 50 mcg 1X ONCE IVP Last administered on 04/07/21at 17:35; Start 04/07/21 at 17:30; Stop 04/07/21 at 17:31; Status DC Iohexol (Omnipaque 300 Mg/ml) 75 ml 1X ONCE IV Last administered on 04/07/21at 17:51; Start 04/07/21 at 17:45; Stop 04/07/21 at 17:46; Status DC Info (CONTRAST GIVEN -- Rx MONITORING) 1 each PRN DAILY PRN MC SEE COMMENTS; Start 04/07/21 at 17:45; Stop 04/09/21 at 17:44 Fentanyl Citrate (Fentanyl 2ml Vial) 50 mcg 1X ONCE IVP Last administered on 04/07/21at 18:44; Start 04/07/21 at 18:30; Stop 04/07/21 at 18:31; Status DC Sodium Chloride 1,000 ml @ 1,000 mls/hr 1X ONCE IV Last administered on 04/07/21at 19:18; Start 04/07/21 at 19:00; Stop 04/07/21 at 19:59; Status DC Ondansetron HCl (Zofran) 4 mg 1X ONCE IVP Last administered on 04/07/21at 19:16; Start 04/07/21 at 19:15; Stop 04/07/21 at 19:16; Status DC Hydromorphone HCl (Dilaudid) 1 mg 1X ONCE IVP Last administered on 04/07/21at 21:50; Start 04/07/21 at 22:00; Stop 04/07/21 at 22:01; Status DC Metoclopramide HCl (Reglan Vial) 10 mg 1X ONCE IVP Last administered on 04/07/21at 21:45; Start 04/07/21 at 22:00; Stop 04/07/21 at 22:01; Status DC Famotidine (Pepcid Vial) 20 mg 1X ONCE IVP Last administered on 04/07/21at 21:47; Start 04/07/21 at 22:00; Stop 04/07/21 at 22:01; Status DC Multi-Ingredient Mouthwash/Gargle (Gi Cocktail) 20 ml 1X ONCE SWSW Last administered on 04/07/21at 21:51; Start 04/07/21 at 22:00; Stop 04/07/21 at 22:01; Status DC Sodium Chloride 1,000 ml @ 100 mls/hr Q10H IV Last administered on 04/08/21at 10:52; Start 04/07/21 at 22:00; Stop 04/08/21 at 21:59 Influenza Virus Vaccine Quadrival (Flulaval Quad [id number] Syringe) 0.5 ml ONCE ONCE VAX IM ; Start 04/08/21 at 09:00; Stop 04/08/21 at 09:01; Status DC Hydromorphone HCl (Dilaudid) 1 mg PRN Q4HRS PRN IVP SEVERE PAIN 7-10 Last administered on 04/08/21at 11:57; Start 04/08/21 at 01:30 Ondansetron HCl (Zofran) 4 mg PRN Q4HRS PRN IVP NAUSEA/VOMITING 1ST CHOICE Last administered on 04/08/21at 06:21; Start 04/08/21 at 01:30 Prochlorperazine Edisylate (Compazine) 10 mg PRN Q8HRS PRN IV NAUSEA/VOMITING; Start 04/08/21 at 10:00; Stop 04/08/21 at 10:38; Status DC Promethazine HCl (Phenergan Supp) 25 mg PRN Q6HRS PRN AR NAUSEA/VOMITING Last administered on 04/08/21at 10:51; Start 04/08/21 at 10:45 Pantoprazole Sodium (PROTONIX VIAL for IV PUSH) 40 mg BIDAC IVP ; Start 04/08/21 at 13:15 Active Scripts Active Reported Multivitamins (Multivitamin) 1 Each Tablet 1 Each PO DAILY Amlodipine Besylate 2.5 Mg Tablet 1.25 Mg PO DAILY Wellbutrin Xl (Bupropion Hcl) 150 Mg Tab.er.24h 300 Mg PO [id number] Protonix Packet (Pantoprazole Sodium) 40 Mg Granpkt.dr 40 Mg PO DAILY Lamictal (Lamotrigine) 200 Mg Tablet 400 Mg PO HS Allergies Allergies: Coded Allergies: prochlorperazine maleate (Verified Allergy, Severe, Anxiety, 04/07/21) propoxyphene napsylate (Verified Allergy, Severe, 04/07/21) codeine (Verified Allergy, Intermediate, 04/07/21) hydrocodone bitartrate (Verified Allergy, Intermediate, 04/07/21) TOLERATES HYDROMORPHONE morphine (Verified Allergy, Intermediate, hives, 04/07/21) oxycodone HCl (Verified Allergy, Intermediate, 04/07/21) prochlorperazine edisylate (Verified Allergy, Intermediate, 04/07/21) Physical Exam General: Alert, Oriented X3, Cooperative, No acute distress HEENT: PERRLA, Mucous membr. moist/pink Lungs: Clear to auscultation, Normal air movement Heart: Regular rate, Normal S1, Normal S2, No murmurs Abdomen: Normal bowel sounds, Soft, No tenderness, No hepatosplenomegaly, No masses Extremities: No clubbing, No cyanosis, No edema, Normal pulses, No tenderness/swelling Skin: No rashes, No breakdown Neuro: Normal gait, Normal speech, Normal tone, Sensation intact, Reflexes 2+ Psych/Mental Status: Mental status NL, Mood NL Vitals VITALS Vital Signs Date Time Temp Pulse Resp B/P (MAP) Pulse Ox O2 Delivery O2 Flow Rate FiO2 04/08/21 11:54 98.3 57 16 100/51 (67) 100 98.3 04/08/21 08:06 Room Air Labs Labs Laboratory Tests Test 04/07/21 13:55 04/07/21 18:25 White Blood Count 7.3 x10^3/uL (4.0-11.0) Red Blood Count 4.09 x10^6/uL (3.50-5.40) Hemoglobin 13.6 g/dL (12.0-15.5) Hematocrit 38.8 % (36.0-47.0) Mean Corpuscular Volume 95 fL (79-100) Mean Corpuscular Hemoglobin 33 pg (25-35) Mean Corpuscular Hemoglobin Concent 35 g/dL (31-37) Red Cell Distribution Width 12.5 % (11.5-14.5) Platelet Count 250 x10^3/uL (140-400) Neutrophils (%) (Auto) 70 % (31-73) Lymphocytes (%) (Auto) 19 % (24-48) Monocytes (%) (Auto) 10 % (0-9) Eosinophils (%) (Auto) 1 % (0-3) Basophils (%) (Auto) 1 % (0-3) Neutrophils # (Auto) 5.1 x10^3/uL (1.8-7.7) Lymphocytes # (Auto) 1.4 x10^3/uL (1.0-4.8) Monocytes # (Auto) 0.7 x10^3/uL (0.0-1.1) Eosinophils # (Auto) 0.1 x10^3/uL (0.0-0.7) Basophils # (Auto) 0.1 x10^3/uL (0.0-0.2) Sodium Level 140 mmol/L (136-145) Potassium Level 3.4 mmol/L (3.5-5.1) Chloride Level 101 mmol/L (98-107) Carbon Dioxide Level 27 mmol/L (21-32) Anion Gap 12 (6-14) Blood Urea Nitrogen 10 mg/dL (7-20) Creatinine 0.8 mg/dL (0.6-1.0) Estimated GFR (Cockcroft-Gault) 77.2 BUN/Creatinine Ratio 13 (6-20) Glucose Level 82 mg/dL (70-99) Calcium Level 9.0 mg/dL (8.5-10.1) Total Bilirubin 0.7 mg/dL (0.2-1.0) Aspartate Amino Transf (AST/SGOT) 22 U/L (15-37) Alanine Aminotransferase (ALT/SGPT) 27 U/L (14-59) Alkaline Phosphatase 48 U/L (46-116) Total Protein 7.6 g/dL (6.4-8.2) Albumin 4.4 g/dL (3.4-5.0) Albumin/Globulin Ratio 1.4 (1.0-1.7) Lipase 111 U/L (73-393) Urine Collection Type Unknown Urine Color Yellow Urine Clarity Clear Urine pH 8.0 (<5.0-8.0) Urine Specific [place] 1.010 (1.000-1.030) Urine Protein Negative mg/dL (NEG-TRACE) Urine Glucose (UA) Negative mg/dL (NEG) Urine Ketones (Stick) 40 mg/dL (NEG) Urine Blood Negative (NEG) Urine Nitrite Negative (NEG) Urine Bilirubin Negative (NEG) Urine Urobilinogen Dipstick 0.2 mg/dL (0.2 mg/dL) Urine Leukocyte Esterase Negative (NEG) Urine RBC 0 /HPF (0-2) Urine WBC 0 /HPF (0-4) Urine Squamous Epithelial Cells Few /LPF Urine Bacteria Few /HPF (0-FEW) Laboratory Tests Test 04/07/21 13:55 04/07/21 18:25 White Blood Count 7.3 x10^3/uL (4.0-11.0) Red Blood Count 4.09 x10^6/uL (3.50-5.40) Hemoglobin 13.6 g/dL (12.0-15.5) Hematocrit 38.8 % (36.0-47.0) Mean Corpuscular Volume 95 fL (79-100) Mean Corpuscular Hemoglobin 33 pg (25-35) Mean Corpuscular Hemoglobin Concent 35 g/dL (31-37) Red Cell Distribution Width 12.5 % (11.5-14.5) Platelet Count 250 x10^3/uL (140-400) Neutrophils (%) (Auto) 70 % (31-73) Lymphocytes (%) (Auto) 19 % (24-48) Monocytes (%) (Auto) 10 % (0-9) Eosinophils (%) (Auto) 1 % (0-3) Basophils (%) (Auto) 1 % (0-3) Neutrophils # (Auto) 5.1 x10^3/uL (1.8-7.7) Lymphocytes # (Auto) 1.4 x10^3/uL (1.0-4.8) Monocytes # (Auto) 0.7 x10^3/uL (0.0-1.1) Eosinophils # (Auto) 0.1 x10^3/uL (0.0-0.7) Basophils # (Auto) 0.1 x10^3/uL (0.0-0.2) Sodium Level 140 mmol/L (136-145) Potassium Level 3.4 mmol/L (3.5-5.1) Chloride Level 101 mmol/L (98-107) Carbon Dioxide Level 27 mmol/L (21-32) Anion Gap 12 (6-14) Blood Urea Nitrogen 10 mg/dL (7-20) Creatinine 0.8 mg/dL (0.6-1.0) Estimated GFR (Cockcroft-Gault) 77.2 BUN/Creatinine Ratio 13 (6-20) Glucose Level 82 mg/dL (70-99) Calcium Level 9.0 mg/dL (8.5-10.1) Total Bilirubin 0.7 mg/dL (0.2-1.0) Aspartate Amino Transf (AST/SGOT) 22 U/L (15-37) Alanine Aminotransferase (ALT/SGPT) 27 U/L (14-59) Alkaline Phosphatase 48 U/L (46-116) Total Protein 7.6 g/dL (6.4-8.2) Albumin 4.4 g/dL (3.4-5.0) Albumin/Globulin Ratio 1.4 (1.0-1.7) Lipase 111 U/L (73-393) Urine Collection Type Unknown Urine Color Yellow Urine Clarity Clear Urine pH 8.0 (<5.0-8.0) Urine Specific [place] 1.010 (1.000-1.030) Urine Protein Negative mg/dL (NEG-TRACE) Urine Glucose (UA) Negative mg/dL (NEG) Urine Ketones (Stick) 40 mg/dL (NEG) Urine Blood Negative (NEG) Urine Nitrite Negative (NEG) Urine Bilirubin Negative (NEG) Urine Urobilinogen Dipstick 0.2 mg/dL (0.2 mg/dL) Urine Leukocyte Esterase Negative (NEG) Urine RBC 0 /HPF (0-2) Urine WBC 0 /HPF (0-4) Urine Squamous Epithelial Cells Few /LPF Urine Bacteria Few /HPF (0-FEW) Assessment/Plan Assessment/Plan Assessment: 45y who presented to the ER with RLQ pain Recommendations: 1.) RLQ pain began with eating. Not likely penology professor in origin. With its relation to food may be GI. 2.) Right ovarian cysts two simple cysts around 3.5 cm. Benign in appearance. Unlikely to be the source of pain. 3.) H/o LAVH/LSO removed due to chronic pelvic pain, endometriosis and cysts. Pathology not available, but OP report did not visualize endometriosis during the case. 4.) Endometriosis questionable dx. Would need to review path from hysterectomy. 5.) N/V symptomatic tx per primary team 6.) Lupus currently not on meds for, managed per Primary team 7.) Seizure on Lamictal, managed per Primary team 8.) Unstable angina - managed per Primary team 9.) Factor V - managed per Primary team 10.) Esophageal spasm on Protonix, managed per Primary team 11.) H/o depression on Wellbutrin, managed per Primary team 12.) GERD - managed per Primary team 13.) Multiple allergies to narcotics 14.) Since pain is not penology professor related and cyst are benign, I will be signing off ELDA RUSH MD Apr 08, 2021 13:17
[2021-04-08] MEDS: PANTOPRAZOLE IV PUSH 40 MG VIAL. IVP SCH ×2 (13:50→16:04)
--- NOTE | 2021-04-08 18:06 | NUR ---
IV fluids nonadministered by this RN. Previous bag still infusing. Refer to EMAR for additional details.
[2021-04-09] VITALS (7 sets, daily range): BP systolic 102–159; BP diastolic 51–73
[2021-04-09] MEDS: PROMETHAZINE 25 MG SUPP.RECT. PR PRN ×3 (01:01→21:43)
[2021-04-09] MEDS: ONDANSETRON PF 4 MG/2 ML VIAL. IVP PRN ×3 (07:22→19:23)
[2021-04-09] MEDS: HYDROmorphone 2 MG/ML VIAL IVP PRN ×4 (07:22→23:35)
[2021-04-09] MEDS: PANTOPRAZOLE IV PUSH 40 MG VIAL. IVP SCH ×2 (07:41→14:48)
--- NOTE | 2021-04-09 10:56 | PDOC ---
[facility] PROGRESS NOTE Date of Service DOS: DATE: 04/09/21 TIME: 10:53 Chief Complaint Chief Complaint Nausea vomiting abdominal pain Ovarian cyst Suspect psychosomatic component? Multiple comorbidities; GERD, seizures, lupus, esophageal spasm, clotting disorder, cholecystectomy, hysterectomy, tonsillectomy, left shoulder surgery, previous tobacco abuse. Factor V Leiden? (She is not on anticoagulation) History of Present Illness History of Present Illness 04/09/2021 Patient seen and examined She seems very anxious I suspect she might have a psychosomatic component to this? GI thinks it is GERD and I agree as well (Dr. Ying points out that she is not on anticoagulation despite having a supposed diagnosis factor V Leiden ) Discussed with RN Chart review Vitals/I&O Vitals/I&O: Vital Signs Date Time Temp Pulse Resp B/P (MAP) Pulse Ox O2 Delivery O2 Flow Rate FiO2 04/09/21 07:59 Room Air 04/09/21 07:22 18 100 04/09/21 07:00 98.8 56 106/62 (77) 98.8 I & O 04/08/21 04/08/21 04/09/21 15:00 23:00 07:00 Intake Total 900 ml 50 ml Output Total 20 ml Balance 880 ml 50 ml Physical Exam General: Alert, Oriented X3, Cooperative, Other (Very anxious) Heart: Regular rate, Normal S1, Normal S2, No murmurs Lungs: Clear Abdomen: Normal bowel sounds, Soft, No tenderness, No hepatosplenomegaly, No ma sses Extremities: No clubbing, No cyanosis, No edema, Normal pulses, No tenderness/swelling Skin: No rashes, No breakdown Assessment and Plan Assessmemt and Plan Problems Medical Problems: (1) Intractable abdominal pain Status: Acute (2) Nausea & vomiting Status: Acute Nausea vomiting abdominal pain Ovarian cyst Suspect psychosomatic component? Multiple comorbidities; GERD, seizures, lupus, esophageal spasm, clotting disorder, cholecystectomy, hysterectomy, tonsillectomy, left shoulder surgery, previous tobacco abuse. Factor V Leiden? (She is not on anticoagulation) Plan Appreciate GI and ANIMAL DAYCARE PROVIDER input Continue PPIs We will consult hematology/oncology as she claims she has a 70 pound weight loss? Home meds DVT prophylaxis Full code If work-up is negative will discharge by Sunday Comment Review of Relevant I have reviewed the following items sugey (where applicable) has been applied. Medications: Current Medications Medications (Trade) Dose Ordered Sig/Blair Route PRN Reason Start Time Stop Time Status Last Admin Dose Admin Pantoprazole Sodium (PROTONIX VIAL for IV PUSH) 40 mg BIDAC IVP 04/08/21 13:15 04/09/21 07:41 Justifications for Admission Other Justification RAMAKRISHNA STINSON III DO Apr 09, 2021 10:56
[2021-04-09] MEDS: AA 4.25 %/CALCIUM/LYTES/D5W 1,000 ML IV SCH ×2 (10:59→23:36)
--- NOTE | 2021-04-09 11:48 | PDOC ---
G I PROGRESS NOTE Subjective Not much change. requests adding sucralfate. Objective Able to [facility]. Couple of EGD's with normal appearing esophagus (does not r/o reflux but not major injury) and biopsies not showing H.pylori. Ongoing encounters for psych issues. Physical Exam Lungs clear. RRR Abdomen soft with some epigastric tenderness. Review of Relevant I have reviewed the following items sugey (where applicable) has been applied. Labs Laboratory Tests Test 04/07/21 13:55 04/07/21 18:25 White Blood Count 7.3 x10^3/uL (4.0-11.0) Red Blood Count 4.09 x10^6/uL (3.50-5.40) Hemoglobin 13.6 g/dL (12.0-15.5) Hematocrit 38.8 % (36.0-47.0) Mean Corpuscular Volume 95 fL (79-100) Mean Corpuscular Hemoglobin 33 pg (25-35) Mean Corpuscular Hemoglobin Concent 35 g/dL (31-37) Red Cell Distribution Width 12.5 % (11.5-14.5) Platelet Count 250 x10^3/uL (140-400) Neutrophils (%) (Auto) 70 % (31-73) Lymphocytes (%) (Auto) 19 % (24-48) Monocytes (%) (Auto) 10 % (0-9) Eosinophils (%) (Auto) 1 % (0-3) Basophils (%) (Auto) 1 % (0-3) Neutrophils # (Auto) 5.1 x10^3/uL (1.8-7.7) Lymphocytes # (Auto) 1.4 x10^3/uL (1.0-4.8) Monocytes # (Auto) 0.7 x10^3/uL (0.0-1.1) Eosinophils # (Auto) 0.1 x10^3/uL (0.0-0.7) Basophils # (Auto) 0.1 x10^3/uL (0.0-0.2) Sodium Level 140 mmol/L (136-145) Potassium Level 3.4 mmol/L (3.5-5.1) Chloride Level 101 mmol/L (98-107) Carbon Dioxide Level 27 mmol/L (21-32) Anion Gap 12 (6-14) Blood Urea Nitrogen 10 mg/dL (7-20) Creatinine 0.8 mg/dL (0.6-1.0) Estimated GFR (Cockcroft-Gault) 77.2 BUN/Creatinine Ratio 13 (6-20) Glucose Level 82 mg/dL (70-99) Calcium Level 9.0 mg/dL (8.5-10.1) Total Bilirubin 0.7 mg/dL (0.2-1.0) Aspartate Amino Transf (AST/SGOT) 22 U/L (15-37) Alanine Aminotransferase (ALT/SGPT) 27 U/L (14-59) Alkaline Phosphatase 48 U/L (46-116) Total Protein 7.6 g/dL (6.4-8.2) Albumin 4.4 g/dL (3.4-5.0) Albumin/Globulin Ratio 1.4 (1.0-1.7) Lipase 111 U/L (73-393) Urine Collection Type Unknown Urine Color Yellow Urine Clarity Clear Urine pH 8.0 (<5.0-8.0) Urine Specific [place] 1.010 (1.000-1.030) Urine Protein Negative mg/dL (NEG-TRACE) Urine Glucose (UA) Negative mg/dL (NEG) Urine Ketones (Stick) 40 mg/dL (NEG) Urine Blood Negative (NEG) Urine Nitrite Negative (NEG) Urine Bilirubin Negative (NEG) Urine Urobilinogen Dipstick 0.2 mg/dL (0.2 mg/dL) Urine Leukocyte Esterase Negative (NEG) Urine RBC 0 /HPF (0-2) Urine WBC 0 /HPF (0-4) Urine Squamous Epithelial Cells Few /LPF Urine Bacteria Few /HPF (0-FEW) Vitals/I & O Vital Sign - Last 24 Hours 04/08/21 04/08/21 04/08/21 04/08/21 11:54 15:00 19:00 20:00 Temp 98.3 98.0 98.5 98.3 98.0 98.5 Pulse 57 57 100 Resp 16 18 20 B/P (MAP) 100/51 (67) 108/63 (78) 101/62 (75) Pulse Ox 100 96 95 O2 Delivery Room Air 04/08/21 04/08/21 04/08/21 04/09/21 22:17 22:47 23:32 03:50 Temp 98.0 98.4 98.0 98.4 Pulse 71 67 Resp 18 16 20 20 B/P (MAP) 98/71 (80) 102/51 (68) Pulse Ox 95 100 97 100 O2 Delivery Room Air Room Air 04/09/21 04/09/21 04/09/21 04/09/21 07:00 07:22 07:59 11:19 Temp 98.8 98.8 Pulse 56 56 Resp 20 18 B/P (MAP) 106/62 (77) 106/62 Pulse Ox 95 100 O2 Delivery Room Air Room Air Intake and Output 04/08/21 04/08/21 04/09/21 15:00 23:00 07:00 Intake Total 900 ml 50 ml Output Total 20 ml Balance 880 ml 50 ml Problem List Problems Medical Problems: (1) Intractable abdominal pain Status: Acute (2) Nausea & vomiting Status: Acute Assessment Symptoms likely GERD; may have significant functional overlay. Plan of Care Note Adding sucralfate. Continue same othewise. Justicifation of Admission Dx: Justifications for Admission: Justification of Admission Dx: No ELDA PACHECO MD Apr 09, 2021 11:48
[2021-04-09] MEDS: MULTIVITAMIN with MINERAL TABLET. PO SCH (12:00)
[2021-04-09] MEDS: buPROPion XL 150 MG TAB.ER.24H. PO SCH (12:00)
[2021-04-09] MEDS: SUCRALFATE 1 GM/10 ML ORAL.SUSP. PO SCH ×3 (13:21→20:24)
[2021-04-09] MEDS: CYCLOBENZAPRINE 10 MG TABLET. PO PRN (16:24)
[2021-04-09] MEDS: lamoTRIgine 100 MG TABLET. PO SCH (20:24)
[2021-04-10] MEDS: CYCLOBENZAPRINE 10 MG TABLET. PO PRN ×3 (00:32→21:48)
[2021-04-10] MEDS: ONDANSETRON PF 4 MG/2 ML VIAL. IVP PRN ×3 (00:34→14:37)
[2021-04-10] MEDS: DICYCLOMINE 20 MG/2 ML VIAL. IM PRN ×2 (01:49→17:11)
[2021-04-10] MEDS: HYDROmorphone 2 MG/ML VIAL IVP PRN ×4 (02:44→21:49)
[2021-04-10 03:00] VITALS: BP 90/50
[2021-04-10] MEDS: PROMETHAZINE 25 MG SUPP.RECT. PR PRN ×2 (06:43→17:09)
[2021-04-10] MEDS: PANTOPRAZOLE IV PUSH 40 MG VIAL. IVP SCH ×2 (06:43→13:45)
[2021-04-10 07:49] LABS: BASO % 1 % (0-3); EOS # 0.1 x10^3/uL (0.0-0.7); EOS % 2 % (0-3); HEMATOCRIT 37.3 % (36.0-47.0); LYMPH # 1.4 x10^3/uL (1.0-4.8); LYMPH % 22 % (24-48); MEAN CORPUSCULAR HEMOGLOBIN 33 pg (25-35); MEAN CORPUSCULAR HGB CONC 35 g/dL (31-37); MEAN CORPUSCULAR VOLUME 95 fL (79-100); MONO # 0.5 x10^3/uL (0.0-1.1); MONO % 7 % (0-9); NEUT # 4.4 x10^3/uL (1.8-7.7); NEUT % 68 % (31-73); PLATELET COUNT 218 x10^3/uL (140-400); RED BLOOD COUNT 3.92 x10^6/uL (3.50-5.40); RED CELL DISTRIBUTION WIDTH 12.5 % (11.5-14.5); WHITE BLOOD COUNT 6.5 x10^3/uL (4.0-11.0)
[2021-04-10 08:00] VITALS: BP 93/48
[2021-04-10 08:02] LABS: ALBUMIN/GLOBULIN RATIO 1.4 (1.0-1.7); CALCIUM 8.9 mg/dL (8.5-10.1); CREATININE 0.8 mg/dL (0.6-1.0); GFR 77.2; POTASSIUM 3.7 mmol/L (3.5-5.1); TOTAL BILIRUBIN 0.3 mg/dL (0.2-1.0); TOTAL PROTEIN 6.9 g/dL (6.4-8.2)
[2021-04-10] MEDS: SUCRALFATE 1 GM/10 ML ORAL.SUSP. PO SCH ×4 (08:12→21:48)
[2021-04-10] MEDS: buPROPion XL 150 MG TAB.ER.24H. PO SCH (08:12)
[2021-04-10] MEDS: MULTIVITAMIN with MINERAL TABLET. PO SCH (09:00)
[2021-04-10] MEDS ORDERED: PANTOPRAZOLE SODIUM 40 MG PO SCH (09:00)
[2021-04-10] MEDS: busPIRone 5 MG TABLET. PO SCH (10:34)
[2021-04-10] MEDS: BUTORPHANOL 2 MG/ML VIAL. IV PRN ×2 (10:54→18:10)
[2021-04-10] MEDS: AA 4.25 %/CALCIUM/LYTES/D5W 1,000 ML IV SCH (10:54)
--- NOTE | 2021-04-10 10:56 | PDOC ---
[facility] PROGRESS NOTE Date of Service DOS: DATE: 04/10/21 TIME: 10:53 Chief Complaint Chief Complaint Nausea vomiting abdominal pain Ovarian cyst Suspect psychosomatic component? Multiple comorbidities; GERD, seizures, lupus, esophageal spasm, clotting disorder, cholecystectomy, hysterectomy, tonsillectomy, left shoulder surgery, previous tobacco abuse. Factor V Leiden? (She is not on anticoagulation) History of Present Illness History of Present Illness 04/10/2021 Patient seen and examined She is up pacing the halls states she is been up all night with pain Describes it as radiating from her epigastric region into her back Wants us to increase her Dilaudid I discussed the case with her nurse (were going to try some IV Stadol) Chart reviewed 04/09/2021 Patient seen and examined She seems very anxious I suspect she might have a psychosomatic component to this? GI thinks it is GERD and I agree as well (Dr. Ying points out that she is not on anticoagulation despite having a supposed diagnosis factor V Leiden ) Discussed with RN Chart review Vitals/I&O Vitals/I&O: Vital Signs Date Time Temp Pulse Resp B/P (MAP) Pulse Ox O2 Delivery O2 Flow Rate FiO2 04/10/21 09:00 60 93/48 04/10/21 09:00 97 Room Air 04/10/21 08:00 98.1 18 98.1 I & O 04/09/21 04/09/21 04/10/21 15:00 23:00 07:00 Intake Total 2791 ml 120 ml Balance 2791 ml 120 ml Physical Exam General: Alert, Oriented X3, Cooperative, Other (Very anxious) Heart: Regular rate, Normal S1, Normal S2, No murmurs Lungs: Clear Abdomen: Normal bowel sounds, Soft, No tenderness, No hepatosplenomegaly, No masses Extremities: No clubbing, No cyanosis, No edema, Normal pulses, No tenderness/swelling Skin: No rashes, No breakdown Labs Labs: Laboratory Tests Test 04/10/21 07:05 White Blood Count 6.5 x10^3/uL (4.0-11.0) Red Blood Count 3.92 x10^6/uL (3.50-5.40) Hemoglobin 13.0 g/dL (12.0-15.5) Hematocrit 37.3 % (36.0-47.0) Mean Corpuscular Volume 95 fL (79-100) Mean Corpuscular Hemoglobin 33 pg (25-35) Mean Corpuscular Hemoglobin Concent 35 g/dL (31-37) Red Cell Distribution Width 12.5 % (11.5-14.5) Platelet Count 218 x10^3/uL (140-400) Neutrophils (%) (Auto) 68 % (31-73) Lymphocytes (%) (Auto) 22 % (24-48) Monocytes (%) (Auto) 7 % (0-9) Eosinophils (%) (Auto) 2 % (0-3) Basophils (%) (Auto) 1 % (0-3) Neutrophils # (Auto) 4.4 x10^3/uL (1.8-7.7) Lymphocytes # (Auto) 1.4 x10^3/uL (1.0-4.8) Monocytes # (Auto) 0.5 x10^3/uL (0.0-1.1) Eosinophils # (Auto) 0.1 x10^3/uL (0.0-0.7) Basophils # (Auto) 0.0 x10^3/uL (0.0-0.2) Sodium Level 139 mmol/L (136-145) Potassium Level 3.7 mmol/L (3.5-5.1) Chloride Level 101 mmol/L (98-107) Carbon Dioxide Level 31 mmol/L (21-32) Anion Gap 7 (6-14) Blood Urea Nitrogen 9 mg/dL (7-20) Creatinine 0.8 mg/dL (0.6-1.0) Estimated GFR (Cockcroft-Gault) 77.2 BUN/Creatinine Ratio 11 (6-20) Glucose Level 93 mg/dL (70-99) Calcium Level 8.9 mg/dL (8.5-10.1) Magnesium Level 2.0 mg/dL (1.8-2.4) Total Bilirubin 0.3 mg/dL (0.2-1.0) Aspartate Amino Transf (AST/SGOT) 20 U/L (15-37) Alanine Aminotransferase (ALT/SGPT) 28 U/L (14-59) Alkaline Phosphatase 42 U/L (46-116) Total Protein 6.9 g/dL (6.4-8.2) Albumin 4.0 g/dL (3.4-5.0) Albumin/Globulin Ratio 1.4 (1.0-1.7) Assessment and Plan Assessmemt and Plan Problems Medical Problems: (1) Intractable abdominal pain Status: Acute (2) Nausea & vomiting Status: Acute Nausea vomiting abdominal pain Ovarian cyst ?Suspect psychosomatic component? Multiple comorbidities; GERD, seizures, lupus, esophageal spasm, clotting disorder, cholecystectomy, hysterectomy, tonsillectomy, left shoulder surgery, previous tobacco abuse. Factor V Leiden? (She is not on anticoagulation) Plan Appreciate GI and WHOLESALE MANAGER input Continue PPIs Consulted hematology/oncology yesterday as she claims she has a 70 pound weight loss? We will try some IV Stadol Home meds DVT prophylaxis Full code If work-up is negative hope to discharge by Sunday Comment Review of Relevant I have reviewed the following items sugey (where applicable) has been applied. Medications: Current Medications Medications (Trade) Dose Ordered Sig/Blair Route PRN Reason Start Time Stop Time Status Last Admin Dose Admin Amino Acids/ Electrolytes/ Dextrose 1,000 ml @ 80 mls/hr [id number] IV 04/09/21 11:00 04/09/21 23:36 Bupropion HCl (Wellbutrin Xl) 300 mg [id number] PO 04/09/21 12:00 04/10/21 08:12 Lamotrigine (LaMICtal) 400 mg HS PO 04/09/21 21:00 04/09/21 20:24 Sucralfate (Carafate Oral Susp) 1 gm QID PO 04/09/21 13:00 04/10/21 08:12 Cyclobenzaprine HCl (Flexeril) 10 mg PRN Q8HRS PRN PO MUSCLE SPASMS 04/09/21 16:00 04/10/21 08:11 Dicyclomine HCl (Bentyl) 10 mg PRN Q6HRS PRN IM ABDOMINAL PAIN 04/10/21 01:45 04/10/21 01:49 Buspirone HCl (Buspar) 5 mg DAILY08 PO 04/10/21 10:00 04/10/21 10:34 Justifications for Admission Other Justification RAMAKRISHNA STINSON III DO Apr 10, 2021 10:55
[2021-04-10 11:00] VITALS: BP 89/49
--- NOTE | 2021-04-10 12:22 | PDOC ---
G I PROGRESS NOTE Subjective Rough night. Still with issues. Physical Exam Lungs clear. RRR Abdomen soft. Pulse not tachycardic. Review of Relevant I have reviewed the following items sugey (where applicable) has been applied. Labs Laboratory Tests Test 04/10/21 07:05 White Blood Count 6.5 x10^3/uL (4.0-11.0) Red Blood Count 3.92 x10^6/uL (3.50-5.40) Hemoglobin 13.0 g/dL (12.0-15.5) Hematocrit 37.3 % (36.0-47.0) Mean Corpuscular Volume 95 fL (79-100) Mean Corpuscular Hemoglobin 33 pg (25-35) Mean Corpuscular Hemoglobin Concent 35 g/dL (31-37) Red Cell Distribution Width 12.5 % (11.5-14.5) Platelet Count 218 x10^3/uL (140-400) Neutrophils (%) (Auto) 68 % (31-73) Lymphocytes (%) (Auto) 22 % (24-48) Monocytes (%) (Auto) 7 % (0-9) Eosinophils (%) (Auto) 2 % (0-3) Basophils (%) (Auto) 1 % (0-3) Neutrophils # (Auto) 4.4 x10^3/uL (1.8-7.7) Lymphocytes # (Auto) 1.4 x10^3/uL (1.0-4.8) Monocytes # (Auto) 0.5 x10^3/uL (0.0-1.1) Eosinophils # (Auto) 0.1 x10^3/uL (0.0-0.7) Basophils # (Auto) 0.0 x10^3/uL (0.0-0.2) Sodium Level 139 mmol/L (136-145) Potassium Level 3.7 mmol/L (3.5-5.1) Chloride Level 101 mmol/L (98-107) Carbon Dioxide Level 31 mmol/L (21-32) Anion Gap 7 (6-14) Blood Urea Nitrogen 9 mg/dL (7-20) Creatinine 0.8 mg/dL (0.6-1.0) Estimated GFR (Cockcroft-Gault) 77.2 BUN/Creatinine Ratio 11 (6-20) Glucose Level 93 mg/dL (70-99) Calcium Level 8.9 mg/dL (8.5-10.1) Magnesium Level 2.0 mg/dL (1.8-2.4) Total Bilirubin 0.3 mg/dL (0.2-1.0) Aspartate Amino Transf (AST/SGOT) 20 U/L (15-37) Alanine Aminotransferase (ALT/SGPT) 28 U/L (14-59) Alkaline Phosphatase 42 U/L (46-116) Total Protein 6.9 g/dL (6.4-8.2) Albumin 4.0 g/dL (3.4-5.0) Albumin/Globulin Ratio 1.4 (1.0-1.7) Laboratory Tests Test 04/10/21 07:05 White Blood Count 6.5 x10^3/uL (4.0-11.0) Red Blood Count 3.92 x10^6/uL (3.50-5.40) Hemoglobin 13.0 g/dL (12.0-15.5) Hematocrit 37.3 % (36.0-47.0) Mean Corpuscular Volume 95 fL (79-100) Mean Corpuscular Hemoglobin 33 pg (25-35) Mean Corpuscular Hemoglobin Concent 35 g/dL (31-37) Red Cell Distribution Width 12.5 % (11.5-14.5) Platelet Count 218 x10^3/uL (140-400) Neutrophils (%) (Auto) 68 % (31-73) Lymphocytes (%) (Auto) 22 % (24-48) Monocytes (%) (Auto) 7 % (0-9) Eosinophils (%) (Auto) 2 % (0-3) Basophils (%) (Auto) 1 % (0-3) Neutrophils # (Auto) 4.4 x10^3/uL (1.8-7.7) Lymphocytes # (Auto) 1.4 x10^3/uL (1.0-4.8) Monocytes # (Auto) 0.5 x10^3/uL (0.0-1.1) Eosinophils # (Auto) 0.1 x10^3/uL (0.0-0.7) Basophils # (Auto) 0.0 x10^3/uL (0.0-0.2) Sodium Level 139 mmol/L (136-145) Potassium Level 3.7 mmol/L (3.5-5.1) Chloride Level 101 mmol/L (98-107) Carbon Dioxide Level 31 mmol/L (21-32) Anion Gap 7 (6-14) Blood Urea Nitrogen 9 mg/dL (7-20) Creatinine 0.8 mg/dL (0.6-1.0) Estimated GFR (Cockcroft-Gault) 77.2 BUN/Creatinine Ratio 11 (6-20) Glucose Level 93 mg/dL (70-99) Calcium Level 8.9 mg/dL (8.5-10.1) Magnesium Level 2.0 mg/dL (1.8-2.4) Total Bilirubin 0.3 mg/dL (0.2-1.0) Aspartate Amino Transf (AST/SGOT) 20 U/L (15-37) Alanine Aminotransferase (ALT/SGPT) 28 U/L (14-59) Alkaline Phosphatase 42 U/L (46-116) Total Protein 6.9 g/dL (6.4-8.2) Albumin 4.0 g/dL (3.4-5.0) Albumin/Globulin Ratio 1.4 (1.0-1.7) Vitals/I & O Vital Sign - Last 24 Hours 04/09/21 04/09/21 04/09/21 04/09/21 14:52 15:00 15:30 19:00 Temp 98.6 98.4 98.6 98.4 Pulse 60 68 Resp 20 20 B/P (MAP) 114/73 (87) 159/69 (99) Pulse Ox 99 97 98 O2 Delivery Room Air Room Air Room Air 04/09/21 04/09/21 04/09/21 04/09/21 19:23 19:53 20:00 23:00 Temp 98.8 98.8 Pulse 62 Resp 20 18 20 B/P (MAP) 104/56 (72) Pulse Ox 97 97 100 O2 Delivery Room Air Room Air Room Air Room Air 04/09/21 04/10/21 04/10/21 04/10/21 23:35 00:05 02:44 03:00 Temp 98.2 98.2 Pulse 58 Resp 20 18 18 20 B/P (MAP) 90/50 (63) Pulse Ox 97 97 97 100 O2 Delivery Room Air Room Air Room Air Room Air 04/10/21 04/10/21 04/10/21 04/10/21 03:14 08:00 08:11 09:00 Temp 98.1 98.1 Pulse 60 Resp 18 18 B/P (MAP) 93/48 (63) Pulse Ox 97 100 97 97 O2 Delivery Room Air Room Air Room Air Room Air 04/10/21 04/10/21 04/10/21 09:00 10:54 11:00 Temp 98.3 98.3 Pulse 60 59 Resp 16 B/P (MAP) 93/48 89/49 (62) Pulse Ox 97 99 O2 Delivery Room Air Room Air Intake and Output 04/09/21 04/09/21 04/10/21 15:00 23:00 07:00 Intake Total 2791 ml 120 ml Balance 2791 ml 120 ml Problem List Problems Medical Problems: (1) Intractable abdominal pain Status: Acute (2) Nausea & vomiting Status: Acute Assessment N, V--likely GERD. Now on po PPI; may get more effect. Don't think other underlying process, but will check ESR, CRP. Plan of Care Note Continue as now. Justicifation of Admission Dx: Justifications for Admission: Justification of Admission Dx: No ELDA PACHECO MD Apr 10, 2021 12:22
[2021-04-10 14:32] VITALS: BP 98/57
[2021-04-10 19:00] VITALS: BP 124/68
[2021-04-10] MEDS: lamoTRIgine 100 MG TABLET. PO SCH (21:48)
[2021-04-10 23:00] VITALS: BP 134/84
[2021-04-11] MEDS: ONDANSETRON PF 4 MG/2 ML VIAL. IVP PRN ×2 (00:44→09:04)
[2021-04-11] MEDS: BUTORPHANOL 2 MG/ML VIAL. IV PRN (00:49)
[2021-04-11] MEDS: AA 4.25 %/CALCIUM/LYTES/D5W 1,000 ML IV SCH (00:50)
[2021-04-11 03:00] VITALS: BP 109/73
[2021-04-11] MEDS: HYDROmorphone 2 MG/ML VIAL IVP PRN (04:12)
[2021-04-11 06:04] LABS: BASO % 1 % (0-3); EOS # 0.1 x10^3/uL (0.0-0.7); EOS % 2 % (0-3); HEMOGLOBIN 13.6 g/dL (12.0-15.5); LYMPH # 1.1 x10^3/uL (1.0-4.8); LYMPH % 17 % (24-48); MEAN CORPUSCULAR HEMOGLOBIN 33 pg (25-35); MEAN CORPUSCULAR HGB CONC 34 g/dL (31-37); MEAN CORPUSCULAR VOLUME 97 fL (79-100); MONO # 0.5 x10^3/uL (0.0-1.1); MONO % 8 % (0-9); NEUT # 4.5 x10^3/uL (1.8-7.7); NEUT % 72 % (31-73); PLATELET COUNT 189 x10^3/uL (140-400); RED BLOOD COUNT 4.12 x10^6/uL (3.50-5.40); RED CELL DISTRIBUTION WIDTH 12.6 % (11.5-14.5); WHITE BLOOD COUNT 6.3 x10^3/uL (4.0-11.0)
[2021-04-11 06:10] LABS: CREATININE 0.7 mg/dL (0.6-1.0); GFR 90.1; MAGNESIUM 2.2 mg/dL (1.8-2.4); POTASSIUM 4.4 mmol/L (3.5-5.1)
[2021-04-11 07:00] VITALS: BP 120/73
[2021-04-11] MEDS: SUCRALFATE 1 GM/10 ML ORAL.SUSP. PO SCH (09:04)
[2021-04-11] MEDS: buPROPion XL 150 MG TAB.ER.24H. PO SCH (09:04)
[2021-04-11] MEDS: PANTOPRAZOLE IV PUSH 40 MG VIAL. IVP SCH (09:04)
[2021-04-11] MEDS: MULTIVITAMIN with MINERAL TABLET. PO SCH (09:05)
[2021-04-11] MEDS: CYCLOBENZAPRINE 10 MG TABLET. PO PRN (09:05)
[2021-04-11] MEDS: busPIRone 5 MG TABLET. PO SCH (09:05)
--- NOTE | 2021-04-11 10:05 | PDOC ---
Date of Service: DATE: 04/11/21 TIME: 09:54 Subjective: Subjective: A little better compared to when admitted but still not great. She'd really like to go home - says she can be miserable there but probably more comfortable, doesn't really think they did anything much for her over the weekend and her preference would be to continue recovery at home if there's nothing more planned. Difficult to sleep with head elevated - more comfortable laying down but that makes symptoms worse. Trying to eat some - full liquids delivered today - confused as to why she was brought coffee, orange juice, and milk because these things will make her reflux worse. Tried some saltines at one point over the weekend - didn't go well - "projectile" response. Was taking Dilaudid but trying to avoid. Has avoided soda and NSAIDs here. brought protein shakes. Objective: Vital Signs: Vital Signs Date Time Temp Pulse Resp B/P (MAP) Pulse Ox O2 Delivery O2 Flow Rate FiO2 04/11/21 07:00 98.0 74 20 120/73 (89) 98 Room Air 98.0 PE: GEN: NAD LUNGS: CTAB HEART: RRR ABD: soft, umbilical discomfort - less comparatively NEURO/PSYCH: A & O 3 A/P: N/v, umbilical pain, nausea H/o GERD and esophageal spasms S/p vernon H/o lupus, chronic joint pain on NSAIDs -- She understands rationale of remaining inpatient until able to eat some and not require IV pain medication, etc. She'd like to try toast for breakfast - nurse present and will order. Encouraged pt to also order what sounds good for lunch - keeping to bland fo od/drink seems reasonable for now. If she is able to tolerate, consider DC soon. Would make sure she has PPI Rx - previously discussed optimal dosing. Continue PPI - can change to PO. Should have outpt follow-up w/ PCP/rheumatology for management of chronic pain. Justicifation of Admission Dx: Justifications for Admission: Justification of Admission Dx: No BILLIE-DARIUS PIERRE Apr 11, 2021 10:05
[2021-04-11 11:00] VITALS: BP 111/78
--- NOTE | 2021-04-11 11:12 | PDOC ---
[facility] PROGRESS NOTE Date of Service DOS: DATE: 04/11/21 TIME: 11:11 Chief Complaint Chief Complaint Nausea vomiting abdominal pain Ovarian cyst Suspect psychosomatic component? Multiple comorbidities; GERD, seizures, lupus, esophageal spasm, clotting disorder, cholecystectomy, hysterectomy, tonsillectomy, left shoulder surgery, previous tobacco abuse. Factor V Leiden? (She is not on anticoagulation) History of Present Illness History of Present Illness 04/11/2021 Patient seen and examined Her is present She is doing much better and eating toast She wants to go home Discussed with case management Discussed with RN I left several prescriptions for Reglan, Carafate, Bentyl and she already has Ultram at home she states 04/10/2021 Patient seen and examined She is up pacing the halls states she is been up all night with pain Describes it as radiating from her epigastric region into her back Wants us to increase her Dilaudid I discussed the case with her nurse (were going to try some IV Stadol) Chart reviewed 04/09/2021 Patient seen and examined She seems very anxious I suspect she might have a psychosomatic component to this? GI thinks it is GERD and I agree as well (Dr. Ying points out that she is not on anticoagulation despite having a supposed diagnosis factor V Leiden ) Discussed with RN Chart review Vitals/I&O Vitals/I&O: Vital Signs Date Time Temp Pulse Resp B/P (MAP) Pulse Ox O2 Delivery O2 Flow Rate FiO2 04/11/21 07:00 98.0 74 20 120/73 (89) 98 Room Air 98.0 I & O 04/10/21 04/10/21 04/11/21 15:00 23:00 07:00 Intake Total 460 ml 300 ml 600 ml Output Total 975 ml Balance 460 ml -675 ml 600 ml Physical Exam General: Alert, Oriented X3, Cooperative, Other (Very anxious) Heart: Regular rate, Normal S1, Normal S2, No murmurs Lungs: Clear Abdomen: Normal bowel sounds, Soft, No tenderness, No hepatosplenomegaly, No masses Extremities: No clubbing, No cyanosis, No edema, Normal pulses, No tendern ess/swelling Skin: No rashes, No breakdown Labs Labs: Laboratory Tests Test 04/10/21 14:45 04/11/21 05:30 04/11/21 05:35 Erythrocyte Sedimentation Rate 15 (0-25) Sodium Level 140 mmol/L (136-145) Potassium Level 4.4 mmol/L (3.5-5.1) Chloride Level 103 mmol/L (98-107) Carbon Dioxide Level 27 mmol/L (21-32) Anion Gap 10 (6-14) Blood Urea Nitrogen 12 mg/dL (7-20) Creatinine 0.7 mg/dL (0.6-1.0) Estimated GFR (Cockcroft-Gault) 90.1 Glucose Level 86 mg/dL (70-99) Calcium Level 9.0 mg/dL (8.5-10.1) Magnesium Level 2.2 mg/dL (1.8-2.4) White Blood Count 6.3 x10^3/uL (4.0-11.0) Red Blood Count 4.12 x10^6/uL (3.50-5.40) Hemoglobin 13.6 g/dL (12.0-15.5) Hematocrit 40.0 % (36.0-47.0) Mean Corpuscular Volume 97 fL (79-100) Mean Corpuscular Hemoglobin 33 pg (25-35) Mean Corpuscular Hemoglobin Concent 34 g/dL (31-37) Red Cell Distribution Width 12.6 % (11.5-14.5) Platelet Count 189 x10^3/uL (140-400) Neutrophils (%) (Auto) 72 % (31-73) Lymphocytes (%) (Auto) 17 % (24-48) Monocytes (%) (Auto) 8 % (0-9) Eosinophils (%) (Auto) 2 % (0-3) Basophils (%) (Auto) 1 % (0-3) Neutrophils # (Auto) 4.5 x10^3/uL (1.8-7.7) Lymphocytes # (Auto) 1.1 x10^3/uL (1.0-4.8) Monocytes # (Auto) 0.5 x10^3/uL (0.0-1.1) Eosinophils # (Auto) 0.1 x10^3/uL (0.0-0.7) Basophils # (Auto) 0.0 x10^3/uL (0.0-0.2) Assessment and Plan Assessmemt and Plan Problems Medical Problems: (1) Intractable abdominal pain Status: Acute (2) Nausea & vomiting Status: Acute Nausea vomiting abdominal pain Ovarian cyst ?Suspect psychosomatic component? Multiple comorbidities; GERD, seizures, lupus, esophageal spasm, clotting disorder, cholecystectomy, hysterectomy, tonsillectomy, left shoulder surgery, previous tobacco abuse. Factor V Leiden? (She is not on anticoagulation) Plan Probable discharge later this morning for now continue the following; Appreciate GI and COMPUTER HARDWARE DESIGNER input Continue PPIs We will try some IV Stadol Home meds DVT prophylaxis Full code Comment Review of Relevant I have reviewed the following items sugey (where applicable) has been applied. Justifications for Admission Other Justification RAMAKRISHNA STINSON III DO Apr 11, 2021 11:12
--- NOTE | 2021-04-11 11:24 | NUR ---
SW following. Discussed with RN, pt from home with , room air, full liquid diet. GI following. RN advised no SW needs, anticipates discharge home today. SW will continue to follow.
--- NOTE | 2021-04-11 11:26 | DS ---
DATE OF DISCHARGE: 04/11/2021 ADMITTING DIAGNOSES: Intractable nausea and vomiting, ovarian cyst. DISCHARGE DIAGNOSES: Resolving intractable nausea and vomiting; ovarian cyst, resolving; probable psychosomatic nausea and vomiting? history of gastroesophageal reflux disease; seizures; lupus; esophageal spasms; clotting disorder; cholecystectomy; hysterectomy; tonsillectomy; left shoulder surgery; previous tobacco abuse and possible factor V Leiden (she states she has but she is not on anticoagulation). CONSULTS: GI. PROCEDURES: None. HOSPITAL COURSE: The patient is a pleasant, middle-aged female who presented with intractable nausea, vomiting. We gave her IV fluids and p.r.n. antiemetics. We consulted GI and over the next few days, her symptoms have slowly resolved. This morning, I saw her and examined her. She is at her baseline and wants to go home. We plan to discharge with close outpatient followup. DISPOSITION: Home. ACTIVITY: As tolerated. DIET: Low sodium. MEDICATIONS: Carafate 1 gram q.i.d., Reglan 10 mg q.i.d., Bentyl 10 q.i.d. We will continue her home Ultram 50 q. 6., Protonix 40 a day, BuSpar 5 a day, Lamictal 400 at bedtime, multiple vitamins, Norvasc 1.25 a day, Wellbutrin 300 a day. TOTAL TIME: 32 minutes. NOVA/OTILIA DR: NOVA/jesus TID: [id number]
[2021-04-11] MEDS ORDERED: SUCR1TAB35 PO (13:46)
[2021-04-11] MEDS ORDERED: METO10TA81 PO (13:47)
--- NOTE | 2021-04-11 14:08 | NUR ---
Patient escorted out to ER entrance with belongings and by Charlene BLANK. Discharge education given. IV and telemonitor discontinued by this RN. Patient learning showed little signs of receptive.
[2021-04-11] MEDS ORDERED: PANTOPRAZOLE 40 MG TABLET.DR. PO SCH (16:30)
== END 2021-04-11 14:03 | disposition home or self-care (01) | DRG 882 ==
LOC: ER 16:13 → 5 NORTH 21:30
PROVIDERS: ADMIT Internal Medicine; ATTEND Internal Medicine
DX: F45.9 Somatoform disorder, unspecified (principal); D68.51 Activated protein C resistance; N83.201 Unspecified ovarian cyst, right side; F12.90 Cannabis use, unspecified, uncomplicated; F32.A Depression, unspecified; F41.9 Anxiety disorder, unspecified; G89.29 Other chronic pain; K21.9 Gastro-esophageal reflux disease without esophagitis; K22.4 Dyskinesia of esophagus; R56.9 Unspecified convulsions; Z82.49 Family history of ischemic heart disease and other diseases of the circulatory system; Z83.3 Family history of diabetes mellitus; Z86.73 Personal history of transient ischemic attack (TIA), and cerebral infarction without residual deficits; Z87.891 Personal history of nicotine dependence; Z90.49 Acquired absence of other specified parts of digestive tract; Z90.711 Acquired absence of uterus with remaining cervical stump; N80.8 Other endometriosis; Z88.5 Allergy status to narcotic agent
CPT/HCPCS: 36415; 74177; 76856; 80048; 80053; 81001; 83690; 83735; 85025; 85651; 86140; 96361; 96374; 96375; 96376; C9113; J0500; J0595; J1170; J2405; J2765; J3010; J3490; J7030; Q9967; 99285-25; G0378